=== PATIENT | female | born 1985 | race Caucasian/White ===

== ENCOUNTER 2017-05-14 09:52 | Emergency (ER) | payer SELFPAY ==
--- NOTE | 2017-05-14 10:16 | ED Physician Documentation ---
Upper Respiratory Symptoms - HISTORIAN Historian: patient - HPI Stated Complaint: cough Chief Complaint: Cough/ Upper Respiratory Additional Information: pt co chest discomfort non prod cough and freq blood in urine dw/hx ov cysts denies Onset: days ago (2weeks) Duration: intermittent episodes Context: recent foreign travel. denies: insect bite(s) Severity: moderate Associated Symptoms: fever. denies: chills, sweating, earache Worsened by Deep Breath: Yes Further Comments: yes (had prev care [facility] THEN TO [facility] - JUST OUT) - ROS CONST/EYES: denies: weakness, eye redness CVS/RESP: denies: chest pain, shortness of breath LYMPH: denies: leg swelling, swollen glands GI/: other (FREQ BLOOD IN URINE DENIES ) MS/SKIN: denies: joint pain, muscle aches - PAST HX Lung Disease: denies: none PE Risk Factors: none. denies: leg swelling, bedridden Other History: denies: cancer chemo, cancer radiation tx, cardiac disease Surgeries/Procedures: none Allergies/Adverse Reactions: Allergies Allergy/AdvReac Type Severity Reaction Status Date / Time No Known Allergies Allergy Verified 05/14/17 10:21 Home Medications: Ambulatory Orders Medication Instructions Recorded Azithromycin 500 mg PO D #5 tablet 05/14/17 - SOCIAL HX Smoking History: less than 1 pack/day Alcohol Use: none Drug Use: none - FAMILY HX Family History: no significant history - VITAL SIGNS Vital Signs: Vital Signs Temp Pulse Resp BP Pulse Ox 99.6 F 83 16 116/45 97 05/14/17 10:05 05/14/17 10:05 05/14/17 10:05 05/14/17 10:05 05/14/17 10:05 - REVIEWED ASSESSMENTS Nursing Assessment Reviewed: Yes Vitals Reviewed: Yes ED Results Lab/Radiology - Orders Orders: ED Orders Category Date Time Status CHEST 2 VIEW [CHEST P.A.&LAT 2 VIEWS] [RAD] Stat Exams 05/14/17 Taken UA [URINALYSIS] Routine Lab 05/14/17 Ordered URINE HCG [URINE HCG] Stat Lab 05/14/17 10:20 Ordered Upper Respiratory Symptoms - EXAM General Appearance: mild distress EENT: eyes nml inspection Neck: normal inspection, thyroid normal, supple Respiratory: no resp. distress, breath sounds nml Abdomen: non-tender CVS: reg rate & rhythm, heart sounds normal Skin: color nml, no rash, warm,dry. No: cyanosis, diaphoresis, pallor Extremities: non-tender, normal range of motion Neuro/Psych: oriented x3, neuro intact, mood/affect nml Discharge Clincal Impression: bronchitis, ovarian cysts Prescriptions: Azithromycin 500 mg PO D #5 tablet Comments: home meds resume care [facility] for ovarian cysts Condition: Good Disposition: 01 HOME, SELF-CARE Decision to Admit: NO Decision Time: 11:01
[2017-05-14 11:01] VITALS: BP 114/68
--- NOTE | 2017-05-14 14:36 | Diagnostic Imaging Report ---
SEBASTIAN GARCIA [facility] [address] [facility].[address] [address] Report Submission Date: May 14, 2017 10:34:22 AM CDT Patient Study Name: AMBROSIO OLIVER Date: May 14, 2017 10:15:39 AM CDT Modality Type: CR Gender: F Description: CHEST : 81 Institution: [facility] Physician: SEBASTIAN GARCIA Examination: PA and lateral chest. History: Evaluate lung patel. Comparison exam: None provided Findings: PA lateral chest demonstrate a normal cardiac and mediastinal silhouette. Mild infiltrate involving the left lung lingula. No blunting of the costophrenic margins. Osseous structures are appropriate for age. Impression: Mild lingular infiltrate. No effusion. Electronically signed on May 14, 2017 10:34:22 AM CDT by: Elbert BETH
[2017-05-15 07:40] LABS: OCCULT BLOOD,URINE 2+ (NEGATIVE); PH URINE 6.5 (5.0 - 8.0); URINE HCG NEGATIVE (NEGATIVE); UROBILINOGEN URINE 0.2 Eu (0.2-1.0)
== END 2017-05-14 10:59 | disposition home or self-care (01) ==
LOC: ED 09:52
DX: J40 Bronchitis, not specified as acute or chronic (principal); N83.209 Unspecified ovarian cyst, unspecified side
CPT/HCPCS: 71020; 81002; 81025; 99283

== ENCOUNTER 2018-05-29 10:23 | Emergency (ER) | payer SELFPAY ==
--- NOTE | 2018-05-29 10:47 | ED Physician Documentation ---
General Adult - HISTORIAN Historian: patient - HPI Stated Complaint: Fall- Head Injury Chief Complaint: General Adult Onset: hours (10) Timing: still present Severity: moderate Further Comments: yes (Pt is a 32 yo female who was tripped up in her basement last night by her dogs and fell backward, hitting the back of her head on concrete. Pt c/o "weird headache." Pt had a head injury with skull fracture as a child. Pt has had some nausea.) - ROS CONST: no problems EYES/ENT: none CVS/RESP: none GI/: none MS/SKIN/LYMPH: none NEURO/PSYCH: headache - PAST HX Past History: other (childhood head injury w skull fracture; fallopian tubes removed) Other History: none Allergies/Adverse Reactions: Allergies Allergy/AdvReac Type Severity Reaction Status Date / Time No Known Allergies Allergy Verified 05/23/17 10:45 Home Medications: Ambulatory Orders Medication Instructions Recorded NK 05/29/18 - SOCIAL HX Smoking History: cigarettes Alcohol Use: occasionally - FAMILY HX Family History: No - VITAL SIGNS Vital Signs: Vital Signs Temp Pulse Resp BP Pulse Ox 98.6 F 76 18 97/46 98 05/29/18 10:25 05/29/18 10:25 05/29/18 10:25 05/29/18 10:25 05/29/18 10:25 - REVIEWED ASSESSMENTS Nursing Assessment Reviewed: Yes Vitals Reviewed: Yes Progress - Progress Progress: CT head w/o contrast: Findings: Ventricles and sulci are appropriate for patient age. Cerebrocerebellar parenchyma demonstrates normal attenuation. No evidence for parenchymal hemorrhage. No evidence for mass or mass effect. No midline shift. No extra axial fluid collections. Partial visualization of the paranasal sinuses, mastoid air cells, orbits, skull and scalp without gross irregularity. Impression: No acute parenchymal process. No hemorrhage. General Adult Physical Exam - PHYSICAL EXAM GENERAL APPEARANCE: mild distress EENT: pharynx normal NECK: normal inspection, supple RESPIRATORY: no resp distress, chest non-tender, breath sounds normal CVS: reg rate & rhythm, heart sounds normal ABDOMEN: soft, no organomegaly, normal bowel sounds BACK: normal inspection, no CVA tenderness SKIN: warm/dry, normal color EXTREMITIES: non-tender, normal range of motion, no evidence of injury NEURO: oriented X3, CN's nml as tested, motor nml, sensation nml Discharge Clincal Impression: Head trauma Qualifiers: Encounter type: initial encounter Qualified Code(s): S09.90XA - Unspecified injury of head, initial encounter Referrals: Primary Doctor,No [Primary Care Provider] - Condition: Stable Disposition: 01 HOME, SELF-CARE Decision to Admit: NO Decision Time: 11:18
[2018-05-29] MEDS: ACETAMINOPHEN 325 MG TABLET PO ONE (10:55)
[2018-05-29] MEDS: KETOROLAC TROMETHAMINE 30 MG/1ML VIAL IM ONE (11:15)
[2018-05-29 11:25] VITALS: BP 101/58
--- NOTE | 2018-05-29 19:05 | Diagnostic Imaging Report ---
LINDA CHRISTINE [facility] [address] [facility] [address] [place], [place]. [address] Report Submission Date: May 29, 2018 11:11:48 AM CDT Patient Study Name: AMBROSIO OLIVER Date: May 29, 2018 10:57:18 AM CDT Modality Type: CT\SR Gender: F Description: CT BRAIN W/O CONTRAST : 81 Institution: [facility] Physician: LINDA CHRISTINE Examination: CT head without contrast History: CT HEAD W/O, PT FELL AND HIT BACK OF HEAD YESTERDAY ON CONCRETE, HAVING HEADACHES SINCE FALL. PT STATES SHE HAD A HEAD INJURY WHEN SHE WAS ABOUT 11 YEARS OLD (Hx) Comparison exam: None available Technique: Noncontrast head CT protocol. Findings: Ventricles and sulci are appropriate for patient age. Cerebrocerebellar parenchyma demonstrates normal attenuation. No evidence for parenchymal hemorrhage. No evidence for mass or mass effect. No midline shift. No extra axial fluid collections. Partial visualization of the paranasal sinuses, mastoid air cells, orbits, skull and scalp without gross irregularity. Impression: No acute parenchymal process. No hemorrhage. Electronically signed on May 29, 2018 11:11:48 AM CDT by: Elbert BETH
== END 2018-05-29 11:22 | disposition home or self-care (01) ==
LOC: ED 10:23
DX: S09.90XA Unspecified injury of head, initial encounter (principal); W19.XXXA Unspecified fall, initial encounter; Y92.018 Other place in single-family (private) house as the place of occurrence of the external cause; Y93.9 Activity, unspecified; Y99.9 Unspecified external cause status
CPT/HCPCS: 70450; J1885; 96372; 99284

== ENCOUNTER 2018-08-10 17:27 | Emergency (ER) | payer OTHER ==
[2018-08-10 17:50] VITALS: BP 120/57
--- NOTE | 2018-08-10 18:02 | ED Physician Documentation ---
Sore Throat/Dental Pain - HISTORIAN Historian: patient - HPI Stated Complaint: Dental pain Chief Complaint: Dental Pain Additional Information: lt post upper dental and ear pain onset 2 days ago Onset: days ago (2 ) Context: Fractured Tooth Associated Symptoms: sore throat, L ear pain. denies: fever, chills Worsened By: heat, cold - ROS CONST: no problems CVS/RESP: none. denies: chest pain, shortness of breath GI/: denies: problems urinating, nausea, vomiting NEURO/PSYCH: none - PAST HX Past History: none Other History: none Allergies/Adverse Reactions: Allergies Allergy/AdvReac Type Severity Reaction Status Date / Time Penicillins Allergy Verified 08/10/18 17:58 Home Medications: Ambulatory Orders Medication Instructions Recorded NK 05/29/18 - SOCIAL HX Smoking History: less than 1 pack/day Alcohol Use: occasionally Drug Use: none - FAMILY HX Family History: No - VITAL SIGNS Vital Signs: Vital Signs Temp Pulse Resp BP Pulse Ox 98.2 F 72 16 120/57 99 08/10/18 17:45 08/10/18 17:45 08/10/18 17:45 08/10/18 17:45 08/10/18 17:45 - REVIEWED ASSESSMENTS Nursing Assessment Reviewed: Yes Vitals Reviewed: Yes Dental Pain Physical Exam - EXAM General Appearance: mild distress Head/Neck: head nml inspection Eyes: eyes nml inspection Mouth/Throat: lips nml, gums nml, gum swelling around teeth Ear/Nose: nml inspection. No: TM erythema Respiratory: no resp. distress, breath sounds nml CVS: reg. rate & rhythm, heart sounds nml Abdomen: soft, no distension Extremities: non-tender, nml ROM Skin: warm/dry, normal color. No: cyanosis, diaphoresis, jaundice Neuro/Psych: none Discharge Clincal Impression: dental caries and sepsis Referrals: Primary Doctor,No [Primary Care Provider] - 2 Days Condition: Good Disposition: 01 HOME, SELF-CARE Decision to Admit: NO Decision Time: 18:07
[2018-08-11] MEDS ORDERED: KETOROLAC TROMETHAMINE 30 MG/1ML VIAL ONE (10:33)
[2018-08-11] MEDS ORDERED: 0.9 % SODIUM CHLORIDE 1,000 ML IV ONE (10:34)
== END 2018-08-10 18:05 | disposition home or self-care (01) ==
LOC: ED 17:27
DX: K02.9 Dental caries, unspecified (principal); K04.7 Periapical abscess without sinus; Z72.0 Tobacco use
CPT/HCPCS: 99281

== ENCOUNTER 2018-10-14 14:36 | Emergency (ER) | payer SELFPAY ==
[2018-10-14] MEDS ORDERED: 0.9 % SODIUM CHLORIDE 1,000 ML IV ONE (14:58)
--- NOTE | 2018-10-14 14:58 | ED Physician Documentation ---
General Adult - HISTORIAN Historian: patient - HPI Stated Complaint: cough, sob Chief Complaint: General Adult Onset: days ago Timing: still present Severity: moderate Further Comments: yes (Pt is a 33 yo female with cough, sob, chest tightness, who was diaphoretic during the night. Pt is a smoker. She has hx bronchitis and pneumonia.) - ROS CONST: weakness EYES/ENT: none CVS/RESP: shortness of breath, cough GI/: none MS/SKIN/LYMPH: none - PAST HX Past History: other (depression) Allergies/Adverse Reactions: Allergies Allergy/AdvReac Type Severity Reaction Status Date / Time Penicillins Allergy Verified 10/14/18 14:48 Home Medications: Ambulatory Orders Medication Instructions Recorded Sertraline HCl [Zoloft] 25 mg PO DAILY 10/14/18 - SOCIAL HX Smoking History: cigarettes - FAMILY HX Family History: No - VITAL SIGNS Vital Signs: Vital Signs Temp Pulse Resp BP Pulse Ox 120/57 08/10/18 18:05 - REVIEWED ASSESSMENTS Nursing Assessment Reviewed: Yes Vitals Reviewed: Yes Progress - Progress Progress: NS 1 L IVF CXR: PA and lateral chest History: Chest pain. Cough. Smoker. PA and lateral chest dated October 14, 2018 demonstrates hyperinflation. There is mild rightward curvature of the lower thoracic spine. The cardiomediastinal silhouette is within normal limits. There is no confluent infiltrate or pleural effusion. Impression: Hyperinflation consistent with COPD. Otherwise, no active disease. Rx Z-terese (Azithromycin). Use as directed on package. Rx Albuterol (90 mcg/spray) MDI. Take 2 puffs every 4 to 6 hours as needed. Rx Robitussin AC (with codeine). Take one or two teaspoons (5 or 10 ml) by mouth every 6 hours as needed for cough. General Adult Physical Exam - PHYSICAL EXAM GENERAL APPEARANCE: moderate distress EENT: pharynx normal NECK: normal inspection, supple RESPIRATORY: no resp distress, wheezes (mild) CVS: reg rate & rhythm, heart sounds normal ABDOMEN: soft, no organomegaly, normal bowel sounds BACK: normal inspection, no CVA tenderness SKIN: warm/dry, normal color EXTREMITIES: non-tender, normal range of motion, no evidence of injury NEURO: oriented X3, motor nml, sensation nml Discharge Clincal Impression: Bronchitis Referrals: Primary Doctor,No [Primary Care Provider] - Condition: Stable Disposition: 01 HOME, SELF-CARE Decision to Admit: NO Decision Time: 17:32
[2018-10-14 15:19] LABS: BASOPHILS % 0.5 (0.0-1.5); EOSINOPHILS % 1.7 % (0.0-6.8); MEAN CORPUSCULAR HEMOGLOBIN 31.7 pg (28.0-34.0); MONOCYTES % 6.1 % (0.0-11.0); NEUTROPHILS # 5.8 # k/uL (1.4-7.7)
--- NOTE | 2018-10-14 15:58 | Diagnostic Imaging Report ---
LINDA CHRISTINE [facility] [address] [facility] [address] [place] [address]. [id number] Report Submission Date: Oct 14, 2018 3:53:51 PM GARBAGE MAN Patient Study Name: AMBROSIO OLIVER Date: Oct 14, 2018 3:00:39 PM GARBAGE MAN Modality Type: DX Gender: F Description: CHEST 2VIEW : 81 Institution: [facility] Physician: LINDA CHRISTINE PA and lateral chest History: Chest pain. Cough. Smoker. PA and lateral chest dated October 14, 2018 demonstrates hyperinflation. There is mild rightward curvature of the lower thoracic spine. The cardiomediastinal silhouette is within normal limits. There is no confluent infiltrate or pleural effusion. Impression: Hyperinflation consistent with COPD. Otherwise, no active disease. Electronically signed on Oct 14, 2018 3:53:51 PM GARBAGE MAN by: Cristina BETH
[2018-10-14] MEDS ORDERED: IPRATROPIUM/ALBUTEROL SULFATE 3 ML AMPUL.NEB NEB ONE (16:00)
[2018-10-14 16:24] LABS: APPEARANCE,URINE CLEAR (CLEAR); COLOR,URINE YELLOW (YELLOW); OCCULT BLOOD,URINE NEGATIVE (NEGATIVE); UROBILINOGEN URINE 0.2 Eu (0.2-1.0)
[2018-10-14 17:49] VITALS: BP 95/58
[2018-10-17 13:01] LABS: eGFR (Non-African) > 60
== END 2018-10-14 17:35 | disposition home or self-care (01) ==
LOC: ED 14:36
DX: J40 Bronchitis, not specified as acute or chronic (principal); Z72.0 Tobacco use
CPT/HCPCS: 36415; 71046; 80053; 81002; 81025; 82550; 82553; 84484; 85025; 85379; 93005; 94640; 99283; 99284; J7030; S1016

== ENCOUNTER 2018-12-30 15:03 | Emergency (ER) | payer SELFPAY ==
--- NOTE | 2018-12-30 15:27 | ED Physician Documentation ---
Low Back Pain - HISTORIAN Historian: patient - HPI Stated Complaint: back pain Chief Complaint: Low Back Pain/ Injury History: back pain Onset: hours (6) Duration: continues in ED Recent Injury: No Severity: moderate Quality: sharp, dull Associated Symptoms: difficulty walking. denies: fever, chills, sweating, constipation, incontinence, nausea, vomiting, problems urinating, light- headedness, dizziness, numbness Worsened By:: upright position, movement to RT flexion, movement to LT flexion Relieved By: remaining still Further Comments: yes (She reports earlier this am she noted pain or stiffness in her back and shoulder but thought she slept wrong. She has increased pain with any movement and palpation is increased pain. Denies any injury. She has mild relief from OTC meds. She has no loss of control of bowel or bladder. She has had back pain in the past. She has tried heat and this is helping more than meds. She states when she moves she feels like the muscles "aquatics specialist tight" in the back mid to lower and right shoulder.) - ROS CONST: no problems MS/SKIN/LYMPH: denies: rash Neuro/Psych: denies: headache - PAST HX Past History: other (scoliosis ) Surgeries/Procedures: none Immunizations: UTD Allergies/Adverse Reactions: Allergies Allergy/AdvReac Type Severity Reaction Status Date / Time Penicillins Allergy Mild Nausea/Vomi Verified 12/30/18 15:10 ting Home Medications: Ambulatory Orders Medication Instructions Recorded NK 12/30/18 - SOCIAL HX Smoking History: cigarettes Alcohol Use: none Drug Use: none - FAMILY HX Family History: none - VITAL SIGNS Vital Signs: Vital Signs Temp Pulse Resp BP Pulse Ox 98.3 F 63 14 99/45 99 12/30/18 15:05 12/30/18 15:05 12/30/18 15:05 12/30/18 15:05 12/30/18 15:05 - REVIEWED ASSESSMENTS Nursing Assessment Reviewed: Yes Vitals Reviewed: Yes Progress - Progress Progress: 1615: discussed results and plan she is agreeable DG ED Results Lab/Radiology - Radiology Radiology Impressions: Examination: Plain film right shoulder History: Chronic back pain and right shoulder pain. worse today. Comparison exams: None provided Findings: 3 views of the right shoulder demonstrate normal cortical margins. No evidence for fracture or dislocation. No soft tissue abnormality Impression: No acute osseous process. Electronically signed on December 30, 2018 4:04:54 PM CDT by: Elbert Uribe Examination: Plain film lumbar spine History: Chronic back pain and right shoulder pain. worse today. Findings: 2 views of the lumbar spine demonstrate normal height. No anterior com pression. Slight curvature to the left. No soft tissue abnormalities. Impression: Mild leftward curvature. No compression deformity. Electronically signed on December 30, 2018 4:06:20 PM CDT by: Elbert Uribe Examination: Plain film thoracic spine History: Chronic back pain and right shoulder pain. worse today. Findings: 3 views of the thoracic spine demonstrate normal height. No anterior compression. Slight curvature to the right. No soft tissue abnormalities. Impression: Mild rightward curvature. No compression deformity. Electronically signed on December 30, 2018 4:07:11 PM CDT by: Elbert Uribe - Orders Orders: ED Orders Category Date Time Status LUMBAR SPINE XR 2 OR 3 VIEWS [L SPINE 2 OR 3 VIEWS] [ Exams 12/30/18 Completed RAD] Stat SHOULDER 2 VIEWS OR MORE [RAD] Stat Exams 12/30/18 Completed T SPINE 3 VIEWS [RAD] Stat Exams 12/30/18 Completed UA W/MICRO IF INDICATED Routine Lab 12/30/18 15:32 Ordered URINE HCG Stat Lab 12/30/18 Uncollected Ketorolac Tromethamine [Toradol] Med 12/30/18 16:16 Discontinued 60 mg IM NOW ONE methylPREDNISolone ACETATE [DEPO-Medrol] Med 12/30/18 16:17 Discontinued 40 mg IM NOW ONE Low Back Pain/Injury - Physical Exam General Appearance: no acute distress, alert EENT: eye inspection normal, ENT inspection normal, pharynx normal, no signs of dehydration, HERMILA Neck: non-tender, painless ROM Resp/CVS: chest non-tender, breath sounds nml, heart sounds nml Abdomen: non-tender Back: non-tender, painless ROM Neuro/Psych: oriented x3 Skin: warm/dry Extremities: tenderness (bilateral lower back mid tspine to lspine - increased pain with palpation - muscle spasm noted. RIght shoulder FROM although increased pain with active elevation and palpation. Pulses + ) Discharge Clincal Impression: Low back pain Qualifiers: Chronicity: acute Back pain laterality: bilateral Sciatica presence: with sciatica Sciatica laterality: bilateral sciatica Qualified Code(s): M54.42 - Lumbago with sciatica, left side Referrals: Primary Doctor,No [Primary Care Provider] - 2 Days Comments: 1. Flexeril 10 mg take 1 by mouth every 8 hours as needed for pain 2. Ibuprofen 800 mg take 1 by mouth every 12 hours as needed for pain 3. Prednisone 10 mg take 1 by mouth daily x 5 days start 12.31.2018 4. Ice or heat for comfort 5. See PCP In 2-4 days 6. Return to ER for any increasing concerns Condition: Stable Disposition: 01 HOME, SELF-CARE Decision to Admit: NO Date of Decison to Admit: 12/30/18 Decision Time: 16:20
--- NOTE | 2018-12-30 16:06 | Diagnostic Imaging Report ---
VANE JON [facility] [address] [facility] [address] [place], [place]. [address] Report Submission Date: December 30, 2018 4:04:54 PM CDT Patient Study Name: AMBROSIO OLIVER Date: December 30, 2018 3:37:29 PM CDT Modality Type: DX Gender: F Description: SHOULDER 2 VIEWS OR MORE : 81 Institution: [facility] Physician: VANE JON Examination: Plain film right shoulder History: Chronic back pain and right shoulder pain. worse today. Comparison exams: None provided Findings: 3 views of the right shoulder demonstrate normal cortical margins. No evidence for fracture or dislocation. No soft tissue abnormality Impression: No acute osseous process. Electronically signed on December 30, 2018 4:04:54 PM CDT by: Elbert BETH
--- NOTE | 2018-12-30 16:08 | Diagnostic Imaging Report ---
VANE JON [facility] [address] [facility] [address] [place], [place]. [address] Report Submission Date: December 30, 2018 4:06:20 PM CDT Patient Study Name: AMBROSIO OLIVER Date: December 30, 2018 3:37:29 PM CDT Modality Type: DX Gender: F Description: L SPINE 2 OR 3 VIEWS : 81 Institution: [facility] Physician: VANE JON Examination: Plain film lumbar spine History: Chronic back pain and right shoulder pain. worse today. Findings: 2 views of the lumbar spine demonstrate normal height. No anterior compression. Slight curvature to the left. No soft tissue abnormalities. Impression: Mild leftward curvature. No compression deformity. Electronically signed on December 30, 2018 4:06:20 PM CDT by: Elbert BETH
--- NOTE | 2018-12-30 16:08 | Diagnostic Imaging Report ---
VANE JON [facility] [address] [facility] [address] [place], [place]. [address] Report Submission Date: December 30, 2018 4:04:54 PM CDT Patient Study Name: AMBROSIO OLIVER Date: December 30, 2018 3:37:29 PM CDT Modality Type: DX Gender: F Description: SHOULDER 2 VIEWS OR MORE : 81 Institution: [facility] Physician: VANE JON Examination: Plain film right shoulder History: Chronic back pain and right shoulder pain. worse today. Comparison exams: None provided Findings: 3 views of the right shoulder demonstrate normal cortical margins. No evidence for fracture or dislocation. No soft tissue abnormality Impression: No acute osseous process. Electronically signed on December 30, 2018 4:04:54 PM CDT by: Elbert BETH
[2018-12-30] MEDS: methylPREDNISolone ACETATE 40 MG/ML VIAL IM ONE (16:26)
[2018-12-30] MEDS: KETOROLAC TROMETHAMINE 60 MG/2 ML VIAL IM ONE (16:28)
[2018-12-30 16:47] VITALS: BP 96/50
[2018-12-30 18:13] LABS: APPEARANCE,URINE CLEAR (CLEAR); COLOR,URINE YELLOW (YELLOW); OCCULT BLOOD,URINE NEGATIVE (NEGATIVE); URINE HCG NEGATIVE (NEGATIVE); UROBILINOGEN URINE 0.2 Eu (0.2-1.0)
== END 2018-12-30 16:36 | disposition home or self-care (01) ==
LOC: ED 15:03
DX: M54.41 Lumbago with sciatica, right side (principal); M54.42 Lumbago with sciatica, left side
CPT/HCPCS: 72072; 72100; 73030; 81002; 81025; 96372; 99283; 99285; J1030; J1885

== ENCOUNTER 2019-04-23 08:29 | Emergency (ER) | payer OTHER ==
--- NOTE | 2019-04-23 08:58 | ED Physician Documentation ---
Abdominal Pain - HISTORIAN Historian: patient - HPI Stated Complaint: RLQ abd pain since yesterday at 0430 Chief Complaint: Abdominal Pain Onset: hours (12) Duration: constant Timing: still present Context: denies: out of country travel, bad food, recent trauma Severity: severe (8/10) Quality: pain, cramping, sharp Associated Symptoms: chills, loss of appetite. denies: fever, nausea, vomiting, bloody emesis, diarrhea, bloody stools, sweating, back pain, neck pain Exacerbated by: nothing Relieved by: nothing Further Comments: yes (She reports a history of ovarian cysts and she is due to start her period in 4 days. She states yesterday at 0430 she woke with RLQ pain that she thought was from her period getting ready to start. She states she tried OTC med heat and rest and the pain is still 8/10 today and she just took Ibuprofen 2 hours prior to arrival. She also states she has had had blood with urine but states there is very little blood on her pad. She states the pain is increaed with movement but OTC med only helped "a little" No fever. Urinary- feels she needs to push to get the urine out and initally it is painful and then there is blood in the toliet. No back pain.) - ROS CONST: no problems GI/: none CVS/RESP: none EYES/ENT: none MS/SKIN/LYMPH: none NEURO/PSYCH: none - SOCIAL HX Smoking History: cigarettes Alcohol Use: none Drug Use: none - FAMILY HX Family History: none - PAST HX Past History: none Ischemic Bowel Risk Factors: none Other History: none Surgeries/Procedures: none Immunizations: UTD Home Medications: Ambulatory Orders Medication Instructions Recorded NK 12/30/18 Allergies/Adverse Reactions: Allergies Allergy/AdvReac Type Severity Reaction Status Date / Time Penicillins Allergy Mild Nausea/Vomi Verified 04/23/19 09:10 ting - VITAL SIGNS Vital Signs: Vital Signs Temp Pulse Resp BP Pulse Ox 97.9 F 17 L 14 95/44 99 04/23/19 08:39 04/23/19 10:28 04/23/19 10:28 04/23/19 10:28 04/23/19 10:28 - REVIEWED ASSESSMENTS Nursing Assessment Reviewed: Yes Vitals Reviewed: Yes Progress - Progress Progress: 927: States pain is decreased to 4/10. DG 1000: reported results and plan she is agreeable DG ED Results Lab/Radiology - Lab Results Lab Results: Lab Results 04/23/19 04/23/19 04/23/19 08:55 08:55 08:45 WBC 9.90 K/ul K/ul (4.00-12.00) RBC 4.51 M/ul M/ul (3.90-5.20) Hgb 14.5 g/dL g/dL (11.5-16.0) Hct 42.8 % % (34.5-46.5) MCV 95.0 fl fl (80.0-100.0) MCH 32.2 pg pg (28.0-34.0) MCHC 33.9 g/dL g/dL (30.0-36.0) RDW 12.2 % % (11.3-14.3) Plt Count 191 K/mm3 K/mm3 (130-400) Neut % (Auto) 74.2 % % (39.0-79.0) Lymph % (Auto) 17.1 % % (16.0-50.0) Door % (Auto) 6.5 % % (0.0-11.0) Eos % (Auto) 1.6 % % (0.0-6.8) Baso % (Auto) 0.6 % % (0.0-1.5) Neut # (Auto) 7.3 # k/uL # k/uL (1.4-7.7) Lymph # (Auto) 1.7 # k/uL # k/uL (0.6-4.0) Door # (Auto) 0.6 # k/uL # k/uL (0.0-0.9) Eos # (Auto) 0.2 # k/uL # k/uL (0.0-0.6) Baso # (Auto) 0.1 # k/uL # k/uL (0.0-0.5) Sodium 143 mmol/L mmol/L (137-145) Potassium 4.0 mmol/L mmol/L (3.5-5.1) Chloride 103 mmol/L mmol/L (98-107) Carbon Dioxide 25 mmol/L mmol/L (22-30) Anion Gap 19.0 BUN 13 mg/dL mg/dL (7-17) Creatinine 0.81 mg/dL mg/dL (0.52-1.04) Estimated Creat Clear 97 Est GFR ( Amer) > 60 (60 - ) Est GFR (Non-Af Amer) > 60 (60 - ) Glucose 181 mg/dL H mg/dL (74-106) Lactate 2.2 U/L H U/L (0.7-2.1) Calcium 9.5 mg/dL mg/dL (8.4-10.2) Total Bilirubin 0.4 mg/dL mg/dL (0.2-1.3) AST 24 U/L U/L (15-46) ALT 13 U/L U/L (13-69) Alkaline Phosphatase 64 U/L U/L (38-126) Total Protein 7.6 g/dL g/dL (6.3-8.2) Albumin 4.7 g/dL g/dL (3.5-5.0) Amylase 58 U/L U/L (30-110) Lipase 30 U/L U/L (23-300) Urine Color Red (YELLOW) Urine Appearance Cloudy H (CLEAR) Urine pH 5.5 (5.0 - 8.0) Ur Specific [place] 1.020 (1.010-1.030) Urine Protein 3+ mg/dL H mg/dL (NEGATIVE) Urine Ketones Trace mg/dL H mg/dL (NEGATIVE) Urine Occult Blood 3+ H (NEGATIVE) Urine Nitrite Positive H (NEGATIVE) Urine Bilirubin 2+ H (NEGATIVE) Urine Urobilinogen 1.0 Eu Eu (0.2-1.0) Ur Leukocyte Esterase 3+ H (NEGATIVE) Urine Glucose Negative mg/dL mg/dL (NEGATIVE) Group A Strep Screen Negative (NEGATIVE) - Radiology Radiology Impressions: Exam: CT abdomen pelvis with contrast. History: Previous gynecologic surgery. Right lower quadrant pain. Axial images through the abdomen and pelvis after IV infusion of 90 cc Omnipaque is submitted along with sagittal and coronal reformatted images. The visualized lower lung patel are clear. No free intraperitoneal air is identified. The gallbladder is distended without stones. The liver, spleen and pancreas are normal attenuation and enhancement without space-occupying lesion. The adrenal glands are not well visualized. The abdominal aorta is of normal caliber. No periaortic lymphadenopathy is identified. Both kidneys are normal attenuation and enhancement without hydronephrosis. The urinary bladder is partially distended without intrinsic filling defect. The uterus is normal in attenuation and enhancement. A small amount of free cul-de-sac fluid is identified. Air and stool is seen throughout the large intestine. No inflammatory changes in the mesentery are noted. No bony abnormalities are identified. Impression: No hydronephrosis. A small amount of free cul-de-sac fluid is identified. No adnexal masses are identified. Nonspecific bowel gas pattern. No inflammatory changes in the mesentery. Electronically signed on Apr 23, 2019 9:46:55 AM CDT by: Shilo Ashley - Orders Orders: ED Orders Category Date Time Status IV Started NOW Care 04/23/19 08:[address] ABD & PELVIS W/ CON Stat Exams 04/23/19 Taken AMYLASE Routine Lab 04/23/19 08:55 Completed CBC/PLATELET/DIFF Stat Lab 04/23/19 08:55 Completed CMP Stat Lab 04/23/19 08:55 Completed GRP A STREP SCREEN Routine Lab 04/23/19 08:45 Completed LACTATE Stat Lab 04/23/19 08:55 Completed LIPASE Stat Lab 04/23/19 08:55 Completed THROAT CULTURE Routine Lab 04/23/19 08:45 Received UA MACRO DIP ONLY Routine Lab 04/23/19 08:45 Completed URINE CULTURE Routine Lab 04/23/19 08:45 Received 0.9 % Sodium Chloride [Normal Saline] 1,000 ml Med 04/23/19 09:00 Discontinued IV NOW fentaNYL CITRATE/PF [Sublimaze] Med 04/23/19 09:00 Discontinued 50 mcg IVP NOW ONE Abdominal Pain Physical Exam - Physical Exam General Appearance: no acute distress, alert EENT: eye inspection normal, no signs of dehydration NECK: normal inspection RESPIRATORY: no resp distress, chest non-tender, breath sounds normal CVS: reg rate & rhythm, heart sounds normal ABDOMEN: soft, normal bowel sounds, no distension, tenderness (RLQ with palpa tion ). No: [place]'s point tenderne BACK: normal inspection, no CVA tenderness SKIN: warm/dry, normal color EXTREMITIES: non-tender NEURO: oriented X3 Vital Signs: Vital Signs Temp Pulse Resp BP Pulse Ox 97.9 F 17 L 14 95/44 99 04/23/19 08:39 04/23/19 10:28 04/23/19 10:28 04/23/19 10:28 04/23/19 10:28 Discharge Clincal Impression: UTI (urinary tract infection) Qualifiers: Urinary tract infection type: acute cystitis Hematuria presence: with hematuria Qualified Code(s): N30.01 - Acute cystitis with hematuria Otitis media, unspecified, bilateral Qualifiers: Otitis media type: unspecified Qualified Code(s): H66.93 - Otitis media, unspecified, bilateral Referrals: Primary Doctor,No [Primary Care Provider] - 2 Days Comments: 1. Augmentin 875mg/125 mg take 1 by mouth twice daily 2. Pyridium 100 mg take 1 by mouth three x a day x 3 days 3. Increase water 4. Urinate after sex 5. Follow up with PCP in 10 days 6. Return to ER for any increasing concerns Condition: Stable Disposition: 01 HOME, SELF-CARE Decision to Admit: NO Date of Decison to Admit: 04/23/19 Decision Time: 10:07
[2019-04-23] MEDS ORDERED: 0.9 % SODIUM CHLORIDE 1,000 ML IV ONE (09:00)
[2019-04-23] MEDS ORDERED: fentaNYL CITRATE/PF 100 MCG/2 ML INJ. IVP ONE (09:00)
[2019-04-23 09:01] LABS: BASOPHILS % 0.6 % (0.0-1.5); NEUTROPHILS # 7.3 # k/uL (1.4-7.7)
[2019-04-23 09:15] LABS: eGFR (Non-African) > 60
[2019-04-23 09:17] LABS: APPEARANCE,URINE CLOUDY (CLEAR); COLOR,URINE RED (YELLOW)
[2019-04-23 09:18] LABS: OCCULT BLOOD,URINE 3+ (NEGATIVE); PH URINE 5.5 (5.0 - 8.0)
[2019-04-23 10:32] VITALS: BP 95/44
--- NOTE | 2019-04-24 14:23 | Diagnostic Imaging Report ---
VANE JON [facility] [address] [facility] [address] [place], [place]. [address] Report Submission Date: Apr 23, 2019 9:46:55 AM CDT Patient Study Name: AMBROSIO OLIVER Date: Apr 23, 2019 9:17:19 AM CDT Modality Type: CT\SR Gender: F Description: CT ABD PELVIS W/ CON : 81 Institution: [facility] Physician: VANE JON Exam: CT abdomen pelvis with contrast. History: Previous gynecologic surgery. Right lower quadrant pain. Axial images through the abdomen and pelvis after IV infusion of 90 cc Omnipaque is submitted along with sagittal and coronal reformatted images. The visualized lower lung patel are clear. No free intraperitoneal air is identified. The gallbladder is distended without stones. The liver, spleen and pancreas are normal attenuation and enhancement without space-occupying lesion. The adrenal glands are not well visualized. The abdominal aorta is of normal caliber. No periaortic lymphadenopathy is identified. Both kidneys are normal attenuation and enhancement without hydronephrosis. The urinary bladder is partially distended without intrinsic filling defect. The uterus is normal in attenuation and enhancement. A small amount of free cul-de-sac fluid is identified. Air and stool is seen throughout the large intestine. No inflammatory changes in the mesentery are noted. No bony abnormalities are identified. Impression: No hydronephrosis. A small amount of free cul-de-sac fluid is identified. No adnexal masses are identified. Nonspecific bowel gas pattern. No inflammatory changes in the mesentery. Electronically signed on Apr 23, 2019 9:46:55 AM CDT by: Shilo BETH
== END 2019-04-23 10:28 | disposition home or self-care (01) ==
LOC: ED 08:29
DX: N30.01 Acute cystitis with hematuria (principal); H66.93 Otitis media, unspecified, bilateral; F17.210 Nicotine dependence, cigarettes, uncomplicated
CPT/HCPCS: 36415; 74177; 80053; 81002; 82150; 83605; 83690; 85025; 87070; 87086; 87880; 96360; 96374; 99283; 99284; J3010; J7030; Q9967; S1016